=== PATIENT | male | born 1995 | race Hispanic/Latino ===

== ENCOUNTER 2016-09-06 00:13 | Emergency (ER) | payer OTHER ==
[2016-09-06] MEDS ORDERED: methylPREDNISolone INJ 125 MG/2 ML VIAL (J2930) As Ordered ONE (01:15)
[2016-09-06] MEDS ORDERED: FAMOTIDINE/NS 20 MG/50 ML BAG (S0028) As Ordered ONE (01:15)
[2016-09-06] MEDS ORDERED: diphenhydrAMINE INJ 50MG/ML VIAL (J1200) As Ordered ONE (01:15)
[2016-09-06 01:26] LABS: BASO % 0.4 % (0.0-1.0); EOS # 0.2 K/mm3 (0.0-0.50); EOS % 3.7 % (0.0-3.0); LARGE UNSTAINED CELL # 0.1 K/mm3 (0.0-0.4); LARGE UNSTAINED CELL % 2.2 % (0.0-4.0); LYMPH # 2.2 K/mm3 (1.5-6.5); LYMPH % 36.7 % (24.0-44.0); MEAN CORPUSCULAR HEMOGLOBIN 29.2 pg (27.0-33.0); MEAN CORPUSCULAR HGB CONC 33.8 g/dl (32.0-36.5); MEAN CORPUSCULAR VOLUME 86.4 fl (80.0-96.0); MONO # 0.4 K/mm3 (0.0-0.8); NEUTROPHILS # 2.9 K/mm3 (1.8-7.7); PLATELET COUNT, AUTOMATED 268 k/mm3 (150-450); RED CELL DISTRIBUTION WIDTH 12.7 % (11.5-14.5); WHITE BLOOD COUNT 5.9 K/mm3 (4.0-10.0)
[2016-09-06 01:47] LABS: ANION GAP 7 MEQ/L (8-16); BLOOD UREA NITROGEN 13 MG/DL (7-18); CALCIUM LEVEL 8.5 MG/DL (8.5-10.1); CARBON DIOXIDE LEVEL 30 MEQ/L (21-32); CHLORIDE LEVEL 104 MEQ/L (98-107); CREATININE FOR GFR 1.07 MG/DL (0.70-1.30); GLOMERULAR FILTRATION RATE > 60.0 (>60); GLUCOSE, FASTING 98 MG/DL (70-105); POTASSIUM SERUM 3.7 MEQ/L (3.5-5.1); SODIUM LEVEL 141 MEQ/L (136-145)
--- NOTE | 2016-09-06 02:42 | EDDOCDS ---
Physician Documentation [facility] Name: Shaquille Gray Age: 21 yrs Sex: Male : 1995 Arrival Date: 09/06/2016 Time: 00:13 Bed I3 / M3 Private MD: Disposition: 09/06/16 02:34 Discharged to Home/Self Care. Impression: Allergic urticaria. - Condition is Stable. - Discharge Instructions: Allergies, Hives. - Prescriptions for Benadryl 25 mg Oral Capsule - take 1 capsule by ORAL route every 6 hours As needed; 30 tablet. Prednisone 20 mg Oral Tablet - take 2 tablet by ORAL route once daily for 5 days; 10 tablet. - Medication Reconciliation, Local Pharmacy Hours form. - Follow up: Private Physician; When: Call to arrange an appointment; Reason: Recheck today's complaints, Continuance of care. - Problem is new. - Symptoms are unchanged. Historical: - Allergies: No known drug Allergies; - Home Meds: 1. none - PMHx: none; - PSHx: none; - Social history: Smoking status: Patient uses tobacco products, heavy tobacco smoker. No barriers to communication noted, The patient speaks fluent Chinese, Speaks appropriately for age. - Family history: Not pertinent. - : The pt / caregiver states he / she is not on anticoagulants. Home medication list is obtained from the patient. - Exposure Risk Screening:: None identified. Vital Signs: 09/06 00:21 BP 146 / 76; Pulse 82; Resp 20; Temp 97.5(O); Pulse Ox 98% on R/A; Weight 117.93 kg / jmb 259.99 lbs (R); Height 5 ft. 8 in. (172.72 cm) (R); Pain 0/10; 00:21 Body Mass Index 39.53 (117.93 kg, 172.72 cm) jm MDM: 01:12 IV Saline Lock ordered. mo1 01:12 Solu-MEDROL 125 mg IVP once ordered. mo1 01:12 Famotidine 20 mg IVPB once over 30 mins; dilute in 50mL of NS ordered. mo1 01:12 diphenhydrAMINE 50 mg IVP once ordered. mo1 01:13 CBC with Diff Ordered. EDMS 01:13 BMP Ordered. EDMS 01:21 Financial registration complete. hs2 01:56 BMP Reviewed. mo1 01:57 CBC with Diff Reviewed. mo1 Administered Medications: 01:30 Drug: Solu-MEDROL 125 mg [Solu-Medrol 500 mg intravenous solution (125 mg)] Route: IVP; af2 Site: right antecubital; 02:00 Follow up: Response: No Adverse Reaction af2 01:32 Drug: Famotidine 20 mg [famotidine 10 mg/mL intravenous solution] Route: IVPB; Infused af2 Over: 30 mins; Site: right antecubital; 02:01 Follow up: IV Status: Completed infusion af2 01:32 Drug: diphenhydrAMINE 50 mg [diphenhydramine 50 mg/mL injection solution (1 mL)] Route: af2 IVP; Site: right antecubital; 02:01 Follow up: Response: No Adverse Reaction af2 Signatures: Dispatcher [employer] Ian Fermin PA PA mo1 Sterling Villaseñor RN RN Mariela Otero RN RN af2 Nidia Alfaro, Reg Reg hs2 MTDD
--- NOTE | 2016-09-06 02:42 | EDDOCDS ---
Nurse's Notes [facility] Name: Shaquille Gray Age: 21 yrs Sex: Male : 1995 Arrival Date: 09/06/2016 Time: 00:13 Bed I3 / M3 Private MD: Diagnosis: Allergic urticaria Presentation: 09/06 00:18 Presenting complaint: Patient states: Patient noted red blotchy skin since eating jmb [employer]. Patient feels that his throat is tightening up. Patient reports bottom lip going numb. Adult Sepsis Screening: The patient does not have new or worsening altered mentation. Patient's respiratory rate is less than 22. Systolic blood pressure is greater than 100. Patient has a qSOFA score of 0- Negative Sepsis Screen. Suicide/Homicide risk assessment- the patient denies having any suicidal and/or homicidal ideations and does not present with any other emotional, behavioral or mental health complaints. 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 Transition of care: patient was not received from another setting of care. 00:18 Method Of Arrival: Walkin/Carried/Asstd [facility] 00:24 Acuity: JOLEEN Level 4 [facility] Triage Assessment: 00:21 General: Appears in no apparent distress, Behavior is appropriate for age, cooperative. b Pain: Denies pain. Pt Declines HIV testing. Neurological: Level of Consciousness is awake, alert, obeys commands, Oriented to person, place, time. Cardiovascular: Capillary refill < 3 seconds Heart tones S1 S2 present. Respiratory: Onset: The symptoms/episode began/occurred gradually, Airway is patent Respiratory effort is even, unlabored, Respiratory pattern is regular, symmetrical, Breath sounds are diminished bilaterally. GI: Abdomen is non- distended. Derm: Skin is normal. Musculoskeletal: Range of motion intact in all extremities. Historical: - Allergies: No known drug Allergies; - Home Meds: 1. none - PMHx: none; - PSHx: none; - Social history: Smoking status: Patient uses tobacco products, heavy tobacco smoker. No barriers to communication noted, The patient speaks fluent Luxembour[place], Speaks appropriately for age. - Family history: Not pertinent. - : The pt / caregiver states he / she is not on anticoagulants. Home medication list is obtained from the patient. - Exposure Risk Screening:: None identified. Screenin:33 Screening information is obtained from the patient. Fall risk: No risks identified. af2 Assistance ADL's: requires no assistance with activities of daily living. Abuse/DV Screen: The patient / caregiver reports he/she is: not in a situation that causes fear, pain or injury. Nutritional screening: No deficits noted. Advance Directives: Currently, there is no health care proxy. home support is adequate. Assessment: 01:27 Cardiovascular: Capillary refill < 3 seconds Heart tones present. jmb 01:37 General: Appears in no apparent distress, Behavior is cooperative. Neurological: Level af2 of Consciousness is awake, alert. Respiratory: Airway is patent Respiratory effort is even, unlabored, Breath sounds are clear bilaterally. Reports shortness of breath. Derm: Skin is normal. 02:05 Reassessment: Patient appears in no apparent distress at this time. Patient states af2 symptoms have improved. Vital Signs: 00:21 BP 146 / 76; Pulse 82; Resp 20; Temp 97.5(O); Pulse Ox 98% on R/A; Weight 117.93 kg [facility] (R); Height 5 ft. 8 in. (172.72 cm) (R); Pain 0/10; 00:21 Body Mass Index 39.53 (117.93 kg, 172.72 cm) [facility] Vitals: 00:21 Log In Time: September 06, 2016 at 00:12. [facility] ED Course: 00:15 Patient visited by Kathy Zhu. gjb 00:15 Patient moved to Waiting gjb 00:24 Patient moved to Triage 1 jmb 00:24 Triage Initiated jmb 00:51 Ian Joel PA is PHCP. mo1 00:51 Lew Hunt DO is Attending Physician. mo1 00:51 Patient moved to I3 / M3 jmb 00:59 Patient visited by Ian Joel PA. mo1 01:22 BMP Sent. jmb 01:22 CBC with Diff Sent. jmb 01:38 Patient visited by Mariela Bucio RN. af2 02:39 Inserted saline lock: 20 gauge in right antecubital area and blood collected. The af2 patient tolerated the procedure well. 02:40 The patient / caregiver is instructed regarding the plan of care and ED course. af2 02:40 Discontinued IV lock intact, bleeding controlled, pressure dressing applied, No af2 redness/swelling at site. No procedures done that require assistance. 02:41 Patient visited by Mariela Bucio RN. af2 Administered Medications: 01:30 Drug: Solu-MEDROL 125 mg [Solu-Medrol 500 mg intravenous solution (125 mg)] Route: IVP; af2 Site: right antecubital; 02:00 Follow up: Response: No Adverse Reaction af2 01:32 Drug: Famotidine 20 mg [famotidine 10 mg/mL intravenous solution] Route: IVPB; Infused af2 Over: 30 mins; Site: right antecubital; 02:01 Follow up: IV Status: Completed infusion af2 01:32 Drug: diphenhydrAMINE 50 mg [diphenhydramine 50 mg/mL injection solution (1 mL)] Route: af2 IVP; Site: right antecubital; 02:01 Follow up: Response: No Adverse Reaction af2 Order Results: Lab Order: CBC with Diff; SPEC'M 09/06/16 01:19 Test: WHITE BLOOD COUNT; Value: 5.9; Range: 4.0-10.0; Units: K/mm3; Status: F Test: RED BLOOD COUNT; Value: 4.43; Range: 4.30-6.10; Units: M/mm3; Status: F Test: HEMOGLOBIN; Value: 12.9; Range: 14.0-18.0; Abnormal: Below low normal; Units: g/dl; Status: F Test: HEMATOCRIT; Value: 38.3; Range: 42.0-52.0; Abnormal: Below low normal; Units: %; Status: F Test: MEAN CORPUSCULAR VOLUME; Value: 86.4; Range: 80.0-96.0; Units: fl; Status: F Test: MEAN CORPUSCULAR HEMOGLOBIN; Value: 29.2; Range: 27.0-33.0; Units: pg; Status: F Test: MEAN CORPUSCULAR HGB CONC; Value: 33.8; Range: 32.0-36.5; Units: g/dl; Status: F Test: RED CELL DISTRIBUTION WIDTH; Value: 12.7; Range: 11.5-14.5; Units: %; Status: F Test: PLATELET COUNT, AUTOMATED; Value: 268; Range: 150-450; Units: k/mm3; Status: F Test: NEUTROPHILS %; Value: 50.0; Range: 36.0-66.0; Units: %; Status: F Test: LYMPH %; Value: 36.7; Range: 24.0-44.0; Units: %; Status: F Test: MONO %; Value: 7.0; Range: 0.0-5.0; Abnormal: Above high normal; Units: %; Status: F Test: EOS %; Value: 3.7; Range: 0.0-3.0; Abnormal: Above high normal; Units: %; Status: F Test: BASO %; Value: 0.4; Range: 0.0-1.0; Units: %; Status: F Test: LARGE UNSTAINED CELL %; Value: 2.2; Range: 0.0-4.0; Units: %; Status: F Test: NEUTROPHILS #; Value: 2.9; Range: 1.8-7.7; Units: K/mm3; Status: F Test: LYMPH #; Value: 2.2; Range: 1.5-6.5; Units: K/mm3; Status: F Test: MONO #; Value: 0.4; Range: 0.0-0.8; Units: K/mm3; Status: F Test: EOS #; Value: 0.2; Range: 0.0-0.50; Units: K/mm3; Status: F Test: BASO #; Value: 0.0; Range: 0.0-0.2; Units: K/mm3; Status: F Test: LARGE UNSTAINED CELL #; Value: 0.1; Range: 0.0-0.4; Units: K/mm3; Status: F Lab Order: [facility]; SPEC'M 09/06/16 01:19 Test: GLUCOSE, FASTING; Value: 98; Range: 70-105; Units: MG/DL; Status: F Test: BLOOD UREA NITROGEN; Value: 13; Range: 7-18; Units: MG/DL; Status: F Test: CREATININE FOR GFR; Value: 1.07; Range: 0.70-1.30; Units: MG/DL; Status: F Test: GLOMERULAR FILTRATION RATE; Value: > 60.0; Range: >60; Status: F Test: SODIUM LEVEL; Value: 141; Range: 136-145; Units: MEQ/L; Status: F Test: POTASSIUM SERUM; Value: 3.7; Range: 3.5-5.1; Units: MEQ/L; Status: F Test: CHLORIDE LEVEL; Value: 104; Range: 98-107; Units: MEQ/L; Status: F Test: CARBON DIOXIDE LEVEL; Value: 30; Range: 21-32; Units: MEQ/L; Status: F Test: ANION GAP; Value: 7; Range: 8-16; Abnormal: Below low normal; Units: MEQ/L; Status: F Test: CALCIUM LEVEL; Value: 8.5; Range: 8.5-10.1; Units: MG/DL; Status: F Test Note: ; Units are mL/min/1.73 m2 Chronic Kidney Disease Staging per NKF: Stage I & II GFR >=60 Normal to Mildly Decreased Stage III GFR 30-59 Moderately Decreased Stage IV GFR 15-29 Severely Decreased Stage V GFR <15 Very Little GFR Left ESRD GFR <15 on HEALTHCARE PROF Outcome: 02:34 Discharge ordered by Provider. mo1 02:40 Discharge Assessment: Patient awake, alert and oriented x 3. No cognitive and/or af2 functional deficits noted. Patient verbalized understanding of disposition instructions. patient administered narcotics - no. The following High Risk Discharge criteria are identified: None. Discharged to home ambulatory. Condition: stable. Discharge instructions given to patient, Instructed on discharge instructions, follow up and referral plans. medication usage, Demonstrated understanding of instructions, medications, Pt was receptive of discharge instructions/ teaching. No special radiology studies were completed. Property :Personal belongings accompany Pt. 02:41 Patient left the ED. af2 Signatures: Ian Joel PA PA mo1 Sterling Villaseñor,RN RN belkisb Mariela BucioRN RN af2 Kathy Zhu Corrections: (The following items were deleted from the chart) 01:29 01:27 General: mother INSTRUCTED ON DISCHARGE INSTRUCTIONS. mother ASKED IF THERE WERE cindy ANY QUESTIONS REGARDING DISCHARGE, MOTHER STATED NO. mother SIGNED DISCHARGE INSTRUCTIONS. patient DISCHARGED IN STABLE CONDITION. . cindy MTDD
--- NOTE | 2016-09-08 03:42 | EDDOCDS ---
Physician Documentation [facility] Name: Shaquille Gray Age: 21 yrs Sex: Male : 1995 Arrival Date: 09/06/2016 Time: 00:13 Bed I3 / M3 Private MD: Disposition: 09/06/16 02:34 Discharged to Home/Self Care. Impression: Allergic urticaria. - Condition is Stable. - Discharge Instructions: Allergies, Hives. - Prescriptions for Benadryl 25 mg Oral Capsule - take 1 capsule by ORAL route every 6 hours As needed; 30 tablet. Prednisone 20 mg Oral Tablet - take 2 tablet by ORAL route once daily for 5 days; 10 tablet. - Medication Reconciliation, Local Pharmacy Hours form. - Follow up: Private Physician; When: Call to arrange an appointment; Reason: Recheck today's complaints, Continuance of care. - Problem is new. - Symptoms are unchanged. Historical: - Allergies: No known drug Allergies; - Home Meds: 1. none - PMHx: none; - PSHx: none; - Social history: Smoking status: Patient uses tobacco products, heavy tobacco smoker. No barriers to communication noted, The patient speaks fluent [place] Citizen, Speaks appropriately for age. - Family history: Not pertinent. - : The pt / caregiver states he / she is not on anticoagulants. Home medication list is obtained from the patient. - Exposure Risk Screening:: None identified. Vital Signs: 09/06 00:21 BP 146 / 76; Pulse 82; Resp 20; Temp 97.5(O); Pulse Ox 98% on R/A; Weight 117.93 kg / jmb 259.99 lbs (R); Height 5 ft. 8 in. (172.72 cm) (R); Pain 0/10; 00:21 Body Mass Index 39.53 (117.93 kg, 172.72 cm) jm MDM: 01:12 IV Saline Lock ordered. mo1 01:12 Solu-MEDROL 125 mg IVP once ordered. mo1 01:12 Famotidine 20 mg IVPB once over 30 mins; dilute in 50mL of NS ordered. mo1 01:12 diphenhydrAMINE 50 mg IVP once ordered. mo1 01:13 CBC with Diff Ordered. EDMS 01:13 BMP Ordered. EDMS 01:21 Financial registration complete. hs2 01:56 BMP Reviewed. mo1 01:57 CBC with Diff Reviewed. mo1 03:02 [facility] Payment Agreement was scanned into [employer] and attached to record. hs2 07:53 T-Sheet-- Draft Copy was scanned into [employer] and attached to record. seh Administered Medications: 01:30 Drug: Solu-MEDROL 125 mg [Solu-Medrol 500 mg intravenous solution (125 mg)] Route: IVP; af2 Site: right antecubital; 02:00 Follow up: Response: No Adverse Reaction af2 01:32 Drug: Famotidine 20 mg [famotidine 10 mg/mL intravenous solution] Route: IVPB; Infused af2 Over: 30 mins; Site: right antecubital; 02:01 Follow up: IV Status: Completed infusion af2 01:32 Drug: diphenhydrAMINE 50 mg [diphenhydramine 50 mg/mL injection solution (1 mL)] Route: af2 IVP; Site: right antecubital; 02:01 Follow up: Response: No Adverse Reaction af2 Signatures: Dispatcher [employer] Ian Fermin PA PA mo1 Sterling VillaseñorRN RN jmb Mariela Bucio RN RN af2 Nidia Alfaro, Reg Reg hs2 Kalyn Cruz [facility] The chart was reviewed and I authenticate all verbal orders and agree with the evaluation and treatment provided.Attachments: 03:02 [facility] Payment Agreement hs2 07:53 T-Sheet-- Draft Copy [facility] Chart Complete MTDD
--- NOTE | 2016-09-08 03:42 | EDDOCDS ---
Physician Documentation [facility] Name: Shaquille Gray Age: 21 yrs Sex: Male : 1995 Arrival Date: 09/06/2016 Time: 00:13 Bed I3 / M3 Private MD: Disposition: 09/06/16 02:34 Discharged to Home/Self Care. Impression: Allergic urticaria. - Condition is Stable. - Discharge Instructions: Allergies, Hives. - Prescriptions for Benadryl 25 mg Oral Capsule - take 1 capsule by ORAL route every 6 hours As needed; 30 tablet. Prednisone 20 mg Oral Tablet - take 2 tablet by ORAL route once daily for 5 days; 10 tablet. - Medication Reconciliation, Local Pharmacy Hours form. - Follow up: Private Physician; When: Call to arrange an appointment; Reason: Recheck today's complaints, Continuance of care. - Problem is new. - Symptoms are unchanged. Historical: - Allergies: No known drug Allergies; - Home Meds: 1. none - PMHx: none; - PSHx: none; - Social history: Smoking status: Patient uses tobacco products, heavy tobacco smoker. No barriers to communication noted, The patient speaks fluent Pakistani, Speaks appropriately for age. - Family history: Not pertinent. - : The pt / caregiver states he / she is not on anticoagulants. Home medication list is obtained from the patient. - Exposure Risk Screening:: None identified. Vital Signs: 09/06 00:21 BP 146 / 76; Pulse 82; Resp 20; Temp 97.5(O); Pulse Ox 98% on R/A; Weight 117.93 kg / jmb 259.99 lbs (R); Height 5 ft. 8 in. (172.72 cm) (R); Pain 0/10; 00:21 Body Mass Index 39.53 (117.93 kg, 172.72 cm) jm MDM: 01:12 IV Saline Lock ordered. mo1 01:12 Solu-MEDROL 125 mg IVP once ordered. mo1 01:12 Famotidine 20 mg IVPB once over 30 mins; dilute in 50mL of NS ordered. mo1 01:12 diphenhydrAMINE 50 mg IVP once ordered. mo1 01:13 CBC with Diff Ordered. EDMS 01:13 BMP Ordered. EDMS 01:21 Financial registration complete. hs2 01:56 BMP Reviewed. mo1 01:57 CBC with Diff Reviewed. mo1 03:02 [facility] Payment Agreement was scanned into [employer] and attached to record. hs2 07:53 T-Sheet-- Draft Copy was scanned into [employer] and attached to record. seh Administered Medications: 01:30 Drug: Solu-MEDROL 125 mg [Solu-Medrol 500 mg intravenous solution (125 mg)] Route: IVP; af2 Site: right antecubital; 02:00 Follow up: Response: No Adverse Reaction af2 01:32 Drug: Famotidine 20 mg [famotidine 10 mg/mL intravenous solution] Route: IVPB; Infused af2 Over: 30 mins; Site: right antecubital; 02:01 Follow up: IV Status: Completed infusion af2 01:32 Drug: diphenhydrAMINE 50 mg [diphenhydramine 50 mg/mL injection solution (1 mL)] Route: af2 IVP; Site: right antecubital; 02:01 Follow up: Response: No Adverse Reaction af2 Signatures: Dispatcher [employer] Ian Fermin PA PA mo1 Sterling VillaseñorRN RN jmb Mariela Bucio RN RN af2 Nidia Alfaro, Reg Reg hs2 Kalyn Cruz [facility] The chart was reviewed and I authenticate all verbal orders and agree with the evaluation and treatment provided.Attachments: 03:02 [facility] Payment Agreement hs2 07:53 T-Sheet-- Draft Copy [facility] Chart Complete MTDD
--- NOTE | 2016-09-08 03:42 | EDDOCDS ---
Nurse's Notes [facility] Name: Shaquille Gray Age: 21 yrs Sex: Male : 1995 Arrival Date: 09/06/2016 Time: 00:13 Bed I3 / M3 Private MD: Diagnosis: Allergic urticaria Presentation: 09/06 00:18 Presenting complaint: Patient states: Patient noted red blotchy skin since eating jmb [employer]. Patient feels that his throat is tightening up. Patient reports bottom lip going numb. Adult Sepsis Screening: The patient does not have new or worsening altered mentation. Patient's respiratory rate is less than 22. Systolic blood pressure is greater than 100. Patient has a qSOFA score of 0- Negative Sepsis Screen. Suicide/Homicide risk assessment- the patient denies having any suicidal and/or homicidal ideations and does not present with any other emotional, behavioral or mental health complaints. Status: The patient is an active duty visitor services representative. Transition of care: patient was not received from another setting of care. 00:18 Method Of Arrival: Walkin/Carried/Asstd [facility] 00:24 Acuity: JOLEEN Level 4 [facility] Triage Assessment: 00:21 General: Appears in no apparent distress, Behavior is appropriate for age, cooperative. b Pain: Denies pain. Pt Declines HIV testing. Neurological: Level of Consciousness is awake, alert, obeys commands, Oriented to person, place, time. Cardiovascular: Capillary refill < 3 seconds Heart tones S1 S2 present. Respiratory: Onset: The symptoms/episode began/occurred gradually, Airway is patent Respiratory effort is even, unlabored, Respiratory pattern is regular, symmetrical, Breath sounds are diminished bilaterally. GI: Abdomen is non- distended. Derm: Skin is normal. Musculoskeletal: Range of motion intact in all extremities. Historical: - Allergies: No known drug Allergies; - Home Meds: 1. none - PMHx: none; - PSHx: none; - Social history: Smoking status: Patient uses tobacco products, heavy tobacco smoker. No barriers to communication noted, The patient speaks fluent Bahamian, Speaks appropriately for age. - Family history: Not pertinent. - : The pt / caregiver states he / she is not on anticoagulants. Home medication list is obtained from the patient. - Exposure Risk Screening:: None identified. Screenin:33 Screening information is obtained from the patient. Fall risk: No risks identified. af2 Assistance ADL's: requires no assistance with activities of daily living. Abuse/DV Screen: The patient / caregiver reports he/she is: not in a situation that causes fear, pain or injury. Nutritional screening: No deficits noted. Advance Directives: Currently, there is no health care proxy. home support is adequate. Assessment: 01:27 Cardiovascular: Capillary refill < 3 seconds Heart tones present. jmb 01:37 General: Appears in no apparent distress, Behavior is cooperative. Neurological: Level af2 of Consciousness is awake, alert. Respiratory: Airway is patent Respiratory effort is even, unlabored, Breath sounds are clear bilaterally. Reports shortness of breath. Derm: Skin is normal. 02:05 Reassessment: Patient appears in no apparent distress at this time. Patient states af2 symptoms have improved. Vital Signs: 00:21 BP 146 / 76; Pulse 82; Resp 20; Temp 97.5(O); Pulse Ox 98% on R/A; Weight 117.93 kg [facility] (R); Height 5 ft. 8 in. (172.72 cm) (R); Pain 0/10; 00:21 Body Mass Index 39.53 (117.93 kg, 172.72 cm) [facility] Vitals: 00:21 Log In Time: September 06, 2016 at 00:12. [facility] ED Course: 00:15 Patient visited by Kathy Zhu. gjb 00:15 Patient moved to Waiting gjb 00:24 Patient moved to Triage 1 jmb 00:24 Triage Initiated jmb 00:51 Ian Joel PA is PHCP. mo1 00:51 Lew Hunt DO is Attending Physician. mo1 00:51 Patient moved to I3 / M3 jmb 00:59 Patient visited by Ian Joel PA. mo1 01:22 BMP Sent. jmb 01:22 CBC with Diff Sent. jmb 01:38 Patient visited by Mariela Bucio RN. af2 02:39 Inserted saline lock: 20 gauge in right antecubital area and blood collected. The af2 patient tolerated the procedure well. 02:40 The patient / caregiver is instructed regarding the plan of care and ED course. af2 02:40 Discontinued IV lock intact, bleeding controlled, pressure dressing applied, No af2 redness/swelling at site. No procedures done that require assistance. 02:41 Patient visited by Mariela Bucio RN. af2 03:02 [facility] Payment Agreement was scanned into [employer] and attached to record. hs2 07:53 T-Sheet-- Draft Copy was scanned into [employer] and attached to record. seh Administered Medications: 01:30 Drug: Solu-MEDROL 125 mg [Solu-Medrol 500 mg intravenous solution (125 mg)] Route: IVP; af2 Site: right antecubital; 02:00 Follow up: Response: No Adverse Reaction af2 01:32 Drug: Famotidine 20 mg [famotidine 10 mg/mL intravenous solution] Route: IVPB; Infused af2 Over: 30 mins; Site: right antecubital; 02:01 Follow up: IV Status: Completed infusion af2 01:32 Drug: diphenhydrAMINE 50 mg [diphenhydramine 50 mg/mL injection solution (1 mL)] Route: af2 IVP; Site: right antecubital; 02:01 Follow up: Response: No Adverse Reaction af2 Order Results: Lab Order: CBC with Diff; SPEC'M 09/06/16 01:19 Test: WHITE BLOOD COUNT; Value: 5.9; Range: 4.0-10.0; Units: K/mm3; Status: F Test: RED BLOOD COUNT; Value: 4.43; Range: 4.30-6.10; Units: M/mm3; Status: F Test: HEMOGLOBIN; Value: 12.9; Range: 14.0-18.0; Abnormal: Below low normal; Units: g/dl; Status: F Test: HEMATOCRIT; Value: 38.3; Range: 42.0-52.0; Abnormal: Below low normal; Units: %; Status: F Test: MEAN CORPUSCULAR VOLUME; Value: 86.4; Range: 80.0-96.0; Units: fl; Status: F Test: MEAN CORPUSCULAR HEMOGLOBIN; Value: 29.2; Range: 27.0-33.0; Units: pg; Status: F Test: MEAN CORPUSCULAR HGB CONC; Value: 33.8; Range: 32.0-36.5; Units: g/dl; Status: F Test: RED CELL DISTRIBUTION WIDTH; Value: 12.7; Range: 11.5-14.5; Units: %; Status: F Test: PLATELET COUNT, AUTOMATED; Value: 268; Range: 150-450; Units: k/mm3; Status: F Test: NEUTROPHILS %; Value: 50.0; Range: 36.0-66.0; Units: %; Status: F Test: LYMPH %; Value: 36.7; Range: 24.0-44.0; Units: %; Status: F Test: MONO %; Value: 7.0; Range: 0.0-5.0; Abnormal: Above high normal; Units: %; Status: F Test: EOS %; Value: 3.7; Range: 0.0-3.0; Abnormal: Above high normal; Units: %; Status: F Test: BASO %; Value: 0.4; Range: 0.0-1.0; Units: %; Status: F Test: LARGE UNSTAINED CELL %; Value: 2.2; Range: 0.0-4.0; Units: %; Status: F Test: NEUTROPHILS #; Value: 2.9; Range: 1.8-7.7; Units: K/mm3; Status: F Test: LYMPH #; Value: 2.2; Range: 1.5-6.5; Units: K/mm3; Status: F Test: MONO #; Value: 0.4; Range: 0.0-0.8; Units: K/mm3; Status: F Test: EOS #; Value: 0.2; Range: 0.0-0.50; Units: K/mm3; Status: F Test: BASO #; Value: 0.0; Range: 0.0-0.2; Units: K/mm3; Status: F Test: LARGE UNSTAINED CELL #; Value: 0.1; Range: 0.0-0.4; Units: K/mm3; Status: F Lab Order: [facility]; SPEC'M 09/06/16 01:19 Test: GLUCOSE, FASTING; Value: 98; Range: 70-105; Units: MG/DL; Status: F Test: BLOOD UREA NITROGEN; Value: 13; Range: 7-18; Units: MG/DL; Status: F Test: CREATININE FOR GFR; Value: 1.07; Range: 0.70-1.30; Units: MG/DL; Status: F Test: GLOMERULAR FILTRATION RATE; Value: > 60.0; Range: >60; Status: F Test: SODIUM LEVEL; Value: 141; Range: 136-145; Units: MEQ/L; Status: F Test: POTASSIUM SERUM; Value: 3.7; Range: 3.5-5.1; Units: MEQ/L; Status: F Test: CHLORIDE LEVEL; Value: 104; Range: 98-107; Units: MEQ/L; Status: F Test: CARBON DIOXIDE LEVEL; Value: 30; Range: 21-32; Units: MEQ/L; Status: F Test: ANION GAP; Value: 7; Range: 8-16; Abnormal: Below low normal; Units: MEQ/L; Status: F Test: CALCIUM LEVEL; Value: 8.5; Range: 8.5-10.1; Units: MG/DL; Status: F Test Note: ; Units are mL/min/1.73 m2 Chronic Kidney Disease Staging per NKF: Stage I & II GFR >=60 Normal to Mildly Decreased Stage III GFR 30-59 Moderately Decreased Stage IV GFR 15-29 Severely Decreased Stage V GFR <15 Very Little GFR Left ESRD GFR <15 on FUSE CUTTER Outcome: 02:34 Discharge ordered by Provider. mo1 02:40 Discharge Assessment: Patient awake, alert and oriented x 3. No cognitive and/or af2 functional deficits noted. Patient verbalized understanding of disposition instructions. patient administered narcotics - no. The following High Risk Discharge criteria are identified: None. Discharged to home ambulatory. Condition: stable. Discharge instructions given to patient, Instructed on discharge instructions, follow up and referral plans. medication usage, Demonstrated understanding of instructions, medications, Pt was receptive of discharge instructions/ teaching. No special radiology studies were completed. Property :Personal belongings accompany Pt. 02:41 Patient left the ED. af2 Signatures: Ian Joel PA PA mo1 Sterling Villaseñor RN RN jmb Fulton, Amber, RN RN af2 Kathy Zhu Hillary, Reg Reg hs2 Kalyn Cruz Corrections: (The following items were deleted from the chart) 01:29 01:27 General: mother INSTRUCTED ON DISCHARGE INSTRUCTIONS. mother ASKED IF THERE WERE jmb ANY QUESTIONS REGARDING DISCHARGE, MOTHER STATED NO. mother SIGNED DISCHARGE INSTRUCTIONS. patient DISCHARGED IN STABLE CONDITION. . jmb Chart Complete MTDD
== END 2016-09-06 02:41 | disposition home or self-care (01) ==
LOC: M ED 00:13
DX: L50.0 Allergic urticaria (principal); F17.210 Nicotine dependence, cigarettes, uncomplicated
CPT/HCPCS: 36415; 80048; 85025; 96365; 96375; 99284; J1200; J2930